=== PATIENT | female | born 1995 | race Caucasian/White ===

== ENCOUNTER 2017-04-27 20:38 | Emergency (ER) | payer BC, OTHER ==
[2017-04-27] MEDS ORDERED: MORPHINE SULFATE 4 MG/ML SYRINGE IVP STA (20:50)
[2017-04-27] MEDS ORDERED: SODIUM CHLORIDE 0.9% 1,000 ML IV ONE (20:50)
[2017-04-27] MEDS ORDERED: DIPH,PERTUS(ACELL)TETVAC-LF 0.5 ML VIAL IM ONE (20:53)
[2017-04-27] MEDS ORDERED: ONDANSETRON 4 MG/2 ML VIAL IVP STA (21:11)
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
[2017-04-27 22:32] VITALS: BP 116/59; PULSE 98; RESP 18; TEMP 99.1
== END 2017-04-27 23:00 | disposition home or self-care (01) ==
LOC: EC 20:38 → SUPCPDRO 20:38 → EC 23:00
DX: S70.01XA Contusion of right hip, initial encounter (principal); S90.31XA Contusion of right foot, initial encounter; Z23 Encounter for immunization; V57.6XXA Passenger in pick-up truck or van injured in collision with fixed or stationary object in traffic accident, initial encounter; Y92.89 Other specified places as the place of occurrence of the external cause
CPT/HCPCS: 71010; 73502; 73630; 90715; 99284; 96374; 96375; 96361; 90471; J2270; J2405

== ENCOUNTER → 2019-09-23 | Outpatient (CLI) | payer BC ==
--- NOTE | 2019-09-23 14:52 | XR ---
EXAMINATION TYPE: XR chest 2V DATE OF EXAM: 09/23/2019 COMPARISON: 04/27/2017 HISTORY: 23-year-old female with cough TECHNIQUE: Frontal and lateral views FINDINGS: The cardiomediastinal silhouette, aorta, and pulmonary vasculature are within normal limits. Lungs an d pleural spaces are clear. IMPRESSION: No acute cardiopulmonary process.
== END | disposition home or self-care (01) ==
LOC: RADXRMAIN 14:18
PROVIDERS: ATTEND Nurse Practitioner Family
DX: R05 Cough (principal); R09.89 Other specified symptoms and signs involving the circulatory and respiratory systems
CPT/HCPCS: 71046

== ENCOUNTER → 2021-07-22 | Outpatient (CLI) | payer MEDICAID ==
[2021-07-22 23:25] LABS: Basophils # (A) 0.04 X 10*3/uL (0.00-0.10); Basophils % (A) 0.4 %; Eosinophils # (A) 0.12 X 10*3/uL (0.04-0.35); Eosinophils % (A) 1.3 %; HCT 38.7 % (37.2-46.3); HGB 12.6 g/dL (12.0-15.0); Lymphocytes # (A) 2.25 X 10*3/uL (0.90-5.00); Lymphocytes % (A) 24.4 %; MCH 30.2 pg (27.0-32.0); MCHC 32.6 g/dL (32.0-37.0); MCV 92.8 fL (80.0-97.0); Mean Platelet Volume 10.6 fL (9.5-12.2); Monocytes # (A) 0.77 X 10*3/uL (0.20-1.00); Monocytes % (A) 8.3 %; Neutrophils # (A) 6.04 X 10*3/uL (1.80-7.70); Neutrophils % (A) 65.4 %; Platelet Count 305 X 10*3/uL (140-440); RBC 4.17 X 10*6/uL (4.10-5.20); RDW 11.9 % (11.5-14.5); WBC 9.24 X 10*3/uL (4.50-10.00)
[2021-07-23 01:04] LABS: African American GFR (CKD) 137.7 (60.0-200.0); Albumin 4.7 g/dL (3.8-4.9); Albumin/Globulin Ratio 2.12 (1.60-3.17); Anion Gap 13.2 mmol/L (4.00-12.00); BUN/Creat Ratio 13.49 Ratio (12.00-20.00); Blood Urea Nitrogen 9.6 mg/dL (9.0-27.0); Calcium 9.2 mg/dL (8.7-10.3); Carbon Dioxide 22.7 mmol/L (21.6-31.8); Globulin 2.2 g/dL (1.6-3.3); Non-African American GFR(CKD) 118.8 (60.0-200.0); Potassium 3.7 mmol/L (3.5-5.5); T4, Free (Free Thyroxine) 0.94 ng/dL (0.800-1.800); Total Bilirubin 0.3 mg/dL (0.30-1.20); Total Protein 6.9 g/dL (6.2-8.2)
== END | disposition home or self-care (01) ==
LOC: LABWHC1 15:17
PROVIDERS: ATTEND Family Medicine
DX: E55.9 Vitamin D deficiency, unspecified (principal); F41.0 Panic disorder [episodic paroxysmal anxiety]; F41.9 Anxiety disorder, unspecified
CPT/HCPCS: 36415; 80053; 82306; 84439; 84443; 85025

== ENCOUNTER → 2021-09-25 | Outpatient (CLI) | payer MEDICAID, OTHER | END | disposition home or self-care (01) | LOC: LABWHC1 06:37 | PROVIDERS: ATTEND Emergency Medicine | DX: Z20.822 Contact with and (suspected) exposure to COVID-19 (principal) | CPT/HCPCS: 87635 ==

== ENCOUNTER → 2021-09-26 | Outpatient (CLI) | payer MEDICAID, OTHER | END | disposition home or self-care (01) | LOC: LABWHC1 06:49 | PROVIDERS: ATTEND Emergency Medicine | DX: Z20.822 Contact with and (suspected) exposure to COVID-19 (principal) | CPT/HCPCS: 87635 ==

== ENCOUNTER → 2021-11-07 | Outpatient (CLI) | payer MEDICAID ==
--- NOTE | 2021-11-07 18:12 | CT ---
EXAMINATION TYPE: CT cervical spine wo con DATE OF EXAM: 11/07/2021 COMPARISON: No previous CT scan is available for comparison. HISTORY: Pain at base of neck following fall. CT DLP: 260.8 mGycm Automated exposure control for dose reduction was used. TECHNIQUE: Multiplanar CT scan of the cervical spine is obtained without contrast, axial images are obtained, sagittal and coronal reformatted images are also reviewed. FINDINGS: Preserved cervical curvature. No significant anterolisthesis or retrolisthesis. No definite vertebral body collapse or acute displaced fracture. Right focal foraminal C3-4 small disc osteophyte complex without significant spinal canal stenosis or neuroforaminal stenosis. No other significant bony degen erative changes of the cervical spine. Unremarkable atlantoaxial and atlantooccipital articulations. No facet dislocation or significant sub luxation. No significant central spinal canal stenosis or neuroforaminal stenosis. Maintained interve rtebral disc spaces. Unremarkable prevertebral soft tissue. Prominent nasopharyngeal, palatine and li ngual tonsils, please correlate clinically. Slightly heterogeneous thyroid gland, please correlate with thyroid function tests. Scattered subcent imeter bilateral cervical lymph nodes, nonspecific. Bilateral apical pulmonary fibrotic changes. Dege nerative/arthritic changes of the mandibular condyles, more than expected for the patient's age, plea se correlate clinically. IMPRESSION: No evidence of traumatic bony injury of the cervical spine. Multiple incidental findings as detailed above.
== END | disposition home or self-care (01) ==
LOC: RADCTMAIN 10:40
PROVIDERS: ATTEND Family Medicine
DX: S19.9XXA Unspecified injury of neck, initial encounter (principal); W19.XXXA Unspecified fall, initial encounter
CPT/HCPCS: 72125

== ENCOUNTER → 2022-08-25 | Outpatient (CLI) | payer MEDICAID ==
[2022-08-25 15:24] LABS: T4, Free (Free Thyroxine) 0.97 ng/dL (0.800-1.800)
== END | disposition home or self-care (01) ==
LOC: LABWHC1 10:33
PROVIDERS: ATTEND Family Medicine
DX: Z00.00 Encounter for general adult medical examination without abnormal findings (principal); E66.3 Overweight; E55.9 Vitamin D deficiency, unspecified; F41.9 Anxiety disorder, unspecified; Z68.26 Body mass index [BMI] 26.0-26.9, adult
CPT/HCPCS: 36415; 82306; 84439; 84443

== ENCOUNTER 2023-03-07 07:46 | Emergency (ER) | payer MEDICAID ==
[2023-03-07 07:52] VITALS: BP 128/80; PULSE 94; RESP 16; TEMP 99
[2023-03-07] MEDS ORDERED: PHENAZOPYRIDINE 100 MG TAB PO STA (07:59)
[2023-03-07] MEDS ORDERED: CEPHALEXIN 500 MG CAP PO STA (07:59)
--- NOTE | 2023-03-07 08:03 | ED ---
General Adult HPI - General Chief complaint: Recheck/Abnormal Lab/Rx Stated complaint: poss UTI Time Seen by Provider: 03/07/23 07:49 Source: patient, RN notes reviewed, old records reviewed Mode of arrival: ambulatory Limitations: no limitations - History of Present Illness Initial comments: Nontoxic-appearing 27-year-old female presents ambulatory with complaints of dysuria that started late last night. Patient states she went to urgent care today thinking she had a urinary tract infection. They did find positive UTI but noted blood in the urine and recommended she come to the emergency room for evaluation. She denies any fevers. No nausea vomiting or diarrhea. No flank pain. She stated states that on Thursday night she did have some right flank pain which resolved and has not had it since. States that she is due to start her menses. No other medical history. -: hour(s) Severity scale (1-10): 0 Quality: burning Consistency: intermittent Worsens with: other (urination) Associated Symptoms: denies other symptoms Treatments Prior to Arrival: other (sent by urgent care) - Related Data Previous Rx's Medication Instructions Recorded HYDROcodone/APAP 5-325MG [[place] 1 tab PO Q6HR PRN #15 tab 04/27/17 5-325] Naproxen [Naprosyn] 500 mg PO Q12HR #30 tab 04/27/17 Cephalexin [Keflex] 500 mg PO Q12HR 5 Days #10 cap 03/07/23 Allergies Allergy/AdvReac Type Severity Reaction Status Date / Time No Known Allergies Allergy Verified 03/07/23 07:48 Review of Systems ROS Statement: Those systems with pertinent positive or pertinent negative responses have been documented in the HPI. ROS Other: All systems not noted in ROS Statement are negative. Past Medical History Past Medical History: No Reported History History of Any Multi-Drug Resistant Organisms: None Reported Past Surgical History: No Surgical Hx Reported Past Psychological History: No Psychological Hx Reported Past Alcohol Use History: Rare Past Drug Use History: None Reported General Exam Limitations: no limitations Course Vital Signs 03/07/23 07:49 Temperature 99 F Pulse Rate 94 Respiratory 16 Rate Blood Pressure 128/80 O2 Sat by Pulse 100 Oximetry Medical Decision Making - Medical Decision Making Was pt. sent in by a medical professional or institution (, PA, ECOLOGICAL RISK ASSESSOR, urgent care, hospital, or [facility]...) When possible be specific @ -[facility] Did you speak to anyone other than the patient for history (EMS, parent, family, police, friend...)? What history was obtained from this source @ -No Did you review nursing and triage notes (agree or disagree)? Why? @ -I reviewed and agree with nursing and triage notes Were old charts reviewed (outside hosp., previous admission, EMS record, old EKG, old radiological studies, urgent care reports/EKG's, [facility] records)? Report findings @ -No old charts were reviewed Differential Diagnosis (chest pain, altered mental status, abdominal pain women, abdominal pain men, vaginal bleeding, weakness, fever, dyspnea, syncope, headache, dizziness, GI bleed, back pain, seizure, CVA, palpatations, mental health, musculoskeletal)? @ -UTI, STI, ectopic , cystitis, pyelonephritis, kidney stone EKG interpreted by me (3pts min.). @ -n/a X-rays interpreted by me (1pt min.). @ -None done CT interpreted by me (1pt min.). @ -None done U/S interpreted by me (1pt. min.). @ -None done What testing was considered but not performed or refused? (CT, X-rays, U/S, labs)? Why? @ -CT or ultrasound of the kidneys considered however patient denies any flank pain at this time. What meds were considered but not given or refused? Why? @ -None Did you discuss the management of the patient with other professionals (professionals i.e. , PA, ECOLOGICAL RISK ASSESSOR, lab, RT, psych nurse, protective services social worker, financial analyst accountant, teacher, railroad police officer, dependency case manager)? Give summary @ -No Was smoking cessation discussed for >3mins.? @ -No Was critical care preformed (if so, how long)? @ -No Were there social determinants of health that impacted care today? How? (Homelessness, low income, unemployed, alcoholism, drug addiction, transportation, low edu. Level, literacy, decrease access to med. care, residential, rehab)? @ -No Was there de-escalation of care discussed even if they declined (Discuss DNR or withdrawal of care, Hospice)? DNR status @ -No What co-morbidities impacted this encounter? (DM, HTN, Smoking, COPD, CAD, Cancer, CVA, ARF, Chemo, Hep., AIDS, mental health diagnosis, sleep apnea, morbid obesity)? @ -None Was patient admitted / discharged? Hospital course, mention meds given and route, prescriptions, significant lab abnormalities, going to OR and other pertinent info. @ -Discharged Nontoxic-appearing 27-year-old female presents ambulatory with complaints of dysuria that started late last night. Patient states she went to urgent care today thinking she had a urinary tract infection. They did find positive UTI but noted blood in the urine and recommended she come to the emergency room for evaluation. She denies any fevers. No nausea vomiting or diarrhea. No flank pain. She stated states that on Thursday night she did have some right flank pain which resolved and has not had it since. Hematuria just started today. States that she is due to start her menses. No vaginal bleeding at this time. No concern for STI, No vaginal discharge. No other medical history. Nonsmoker. Patient states that her father and brother have history of kidney stones however she has never had a kidney stone. [facility] urinalysis results show negative ketones, 3+ blood, positive nitrites and 3+ leukocytes. Negative test. On physical exam patient has no flank pain. Abdomen is soft and nontender. Repeat urinalysis and urine culture was obtained. Repeat UA shows large blood, large leukocyte esterase, 135 white blood cells and rare bacteria. Sent for culture. Patient was given dose of Pyridium for her discomfort and a dose of Keflex in the ER. Prescription for Keflex given. Patient was directed to return to the emergency room with any new or concerning symptoms including flank pain, persistent vomiting or fevers. She is agreeable to this plan of care. Case discussed with Dr. Langston. Undiagnosed new problem with uncertain prognosis? @ -No Drug Therapy requiring intensive monitoring for toxicity (Heparin, Nitro, Insulin, Cardizem)? @ -No Were any procedures done? @ -No Diagnosis/symptom? @ -uti Acute, or Chronic, or Acute on Chronic? @ -Acute Uncomplicated (without systemic symptoms) or Complicated (systemic symptoms)? @ -Uncomplicated Side effects of treatment? @ -No Exacerbation, Progression, or Severe Exacerbation? @ -No Poses a threat to life or bodily function? How? (Chest pain, [place], [place], pneumonia, PE, COPD, DKA, ARF, appy, cholecystitis, CVA, Diverticulitis, Homicidal, Suicidal, threat to staff... and all critical care pts) @ -No - Lab Data Lab Results 03/07/23 Range/Units 08:15 Urine Color Light Red Urine Appearance Turbid H (Clear) Urine pH 8.0 (5.0-8.0) Ur Specific [place] 1.011 (1.001-1.035) Urine Protein 1+ H (Negative) Urine Glucose (UA) Negative (Negative) Urine Ketones Negative (Negative) Urine Blood Large H (Negative) Urine Nitrite Negative (Negative) Urine Bilirubin Negative (Negative) Urine Urobilinogen <2.0 (<2.0) mg/dL Ur Leukocyte Esterase Large H (Negative) Urine RBC >182 H (0-5) /hpf Urine WBC 135 H (0-5) /hpf Urine Bacteria Rare H (None) /hpf Urine Mucus Rare H (None) /hpf Disposition Clinical Impression: UTI (urinary tract infection) Disposition: HOME SELF-CARE Condition: Good Instructions (If sedation given, give patient instructions): Urinary Tract Infection in Women (ED) Additional Instructions: Increase your fluid intake. Take antibiotics as prescribed. Return to the emergency room with any new or concerning symptoms as discussed including fever, back pain or persistent nausea vomiting. Follow-up with primary care doctor next week for reevaluation. Prescriptions: Cephalexin [Keflex] 500 mg PO Q12HR 5 Days #10 cap Is patient prescribed a controlled substance at d/c from ED?: No Referrals: Umberto Epstein Jr, [Primary Care Provider] - 1-2 days Time of Disposition: 08:01
[2023-03-07 08:37] LABS: Appearance,Urine Turbid (Clear); Bacteria,Urine Rare /hpf; Bilirubin,Urine Negative (Negative); Blood,Urine Large (Negative); Color,Urine Light Red; Glucose,Urine (UA) Negative (Negative); Ketones,Urine Negative (Negative); Leukocyte Esterase,Urine Large (Negative); Mucus,Urine Rare /hpf; Nitrite,Urine Negative (Negative); Protein,Urine 1+ (Negative); RBC,Urine >182 /hpf (0-5); Specific Gravity,Urine 1.011 (1.001-1.035); Urobilinogen,Urine <2.0 mg/dL (<2.0); WBC,Urine 135 /hpf (0-5)
== END 2023-03-07 08:46 | disposition home or self-care (01) ==
LOC: EC 07:46
DX: N39.0 Urinary tract infection, site not specified (principal)
CPT/HCPCS: 81001; 87077; 87086; 87186; 99283

== ENCOUNTER → 2023-11-07 | Outpatient (CLI) | payer MEDICAID ==
[2023-11-07 13:38] LABS: Basophils # (A) 0.05 X 10*3/uL (0.00-0.10); Eosinophils # (A) 0.05 X 10*3/uL (0.04-0.35); HCT 38.9 % (37.2-46.3); HGB 12.8 g/dL (12.0-15.0); Immature Grans, Automated 0 %; Lymphocytes # (A) 1.54 X 10*3/uL (0.90-5.00); Lymphocytes % (A) 31.2 %; MCH 30.4 pg (27.0-32.0); MCHC 32.9 g/dL (32.0-37.0); MCV 92.4 FL (80.0-97.0); Mean Platelet Volume 10.3 FL (9.5-12.2); Monocytes # (A) 0.54 X 10*3/uL (0.20-1.00); NRBC Per 100 WBC 0 X 10*3/uL (0.00-0.01); Neutrophils # (A) 2.75 X 10*3/uL (1.80-7.70); Neutrophils % (A) 55.8 %; Platelet Count 286 X 10*3/uL (140-440); RBC 4.21 X 10*6/uL (4.10-5.20); RDW 12.2 % (11.5-14.5); WBC 4.93 X 10*3/uL (4.50-10.00)
[2023-11-07 16:37] LABS: ALT 15 U/L (8-44); AST 15 U/L (13-35); Albumin 4.6 g/dL (3.8-4.9); Albumin/Globulin Ratio 1.84 Ratio (1.60-3.17); Alkaline Phosphatase 48 U/L (41-126); Blood Urea Nitrogen 14.4 mg/dL (9.0-27.0); Calcium 9.4 mg/dL (8.7-10.3); Carbon Dioxide 24.4 mmol/L (21.6-31.8); Chloride 104 mmol/L (96-109); Chol/HDL Ratio 2.31 Ratio; Globulin 2.5 g/dL (1.6-3.3); Glucose 98 mg/dL (70-110); LDL Cholesterol,Calculated 89.8 mg/dL (0.0-131.0); Potassium 4.2 mmol/L (3.5-5.5); Sodium 139 mmol/L (135-145); Total Bilirubin 0.3 mg/dL (0.3-1.2); Total Protein 7.1 g/dL (6.2-8.2); VLDL Calculation 7.32 mg/dL (5.00-40.00)
== END | disposition home or self-care (01) ==
LOC: LABWHC1 08:11
PROVIDERS: ATTEND Family Medicine
DX: Z00.00 Encounter for general adult medical examination without abnormal findings (principal); F41.9 Anxiety disorder, unspecified
CPT/HCPCS: 36415; 80053; 80061; 85025

== ENCOUNTER 2024-09-11 22:42 | Inpatient (IN) | payer MEDICAID ==
--- NOTE | 2024-09-11 23:58 | P.HPOB ---
History of Present Illness H&P Date: 09/11/24 Chief Complaint: 38-6/7 weeks, spontaneous rupture of membranes, early labor The patient is a 28-year-old 1 para 0 admitted at 38-6/7 weeks as established by last menstrual period and confirmed by second trimester ultrasound. She is admitted with documented spontaneous rupture of membranes. She did have a positive urine culture for group B strep early in the and therefore requires antibiotic prophylaxis. Her has otherwise been uncomplicated. On labor delivery, all signs are reassuring with a category 1 heart rate tracing. Obstetrical history: 1 para 0 with current statistics listed in history of present illness. EDC of 09/21/2024 was established by last menstrual period and confirmed by second trimester ultrasound. Laboratory workup demonstrates a blood type of O+ with a negative antibody screen. Rubella status is immune. The remainder of the laboratory workup was within normal limits aside from the positive urine culture for group B strep. 1 hour Glucola was normal. Gynecologic history: Unremarkable with no history of any infections to include STDs. Review of Systems View of systems is confined to history of present illness. Past Medical History Past Medical History: No Reported History History of Any Multi-Drug Resistant Organisms: None Reported Past Surgical History: No Surgical Hx Reported Smoking Status: Never smoker Medications and Allergies Home Medications Medication Instructions Recorded Confirmed Type Aspirin EC [Ecotrin Low Dose] 81 mg PO DAILY 09/11/24 09/11/24 History Cholecalciferol [Vitamin D3 (25 25 mcg PO DAILY 09/11/24 09/11/24 History Mcg = 1000 Iu)] Vit No.179/Iron/Folic 09/11/24 History [ Tablet] RX: Magnesium 09/11/24 History buPROPion [Wellbutrin] 100 mg PO BID 09/11/24 09/11/24 History Allergies Allergy/AdvReac Type Severity Reaction Status Date / Time No Known Allergies Allergy Verified 09/11/24 23:00 Exam Intake and Output 09/11/24 09/11/24 09/12/24 14:59 22:59 06:59 Other: Weight 87.543 kg In general, this is a well-developed, well-nourished white female in no acute distress. Her heart has a regular rhythm and rate without murmur. Her lungs clear to auscultation bilaterally in all tai. Her abdomen is gravid, nondistended, has normal active bowel sounds, soft, nontender, and without any palpable masses aside from uterine fundus. Her extremities are without any cyanosis, clubbing, or significant edema and are nontender to palpation bilaterally. Digital cervical examination performed by the nursing staff d dionisiotrates her cervix to be 2 cm dilated, 80% effaced, with the vertex and presentation at -2 station. Spontaneous rupture of membranes is documented. Assessment and Plan (1) Group B streptococcal infection in Current Visit: Yes Status: Acute Code(s): O98.819 - OTH MATERNAL INFEC/ PARASTC DISEASES COMP PREG, UNSP TRI; B95.1 - STREPTOCOCCUS, GROUP B, CAUSING DISEASES CLASSD [id number] SNOMED Code(s): 555861827 (2) Spontaneous rupture of amniotic membranes Current Visit: Yes Status: Acute Code(s): FOO0495 - SNOMED Code(s): 305685887 (3) Term Current Visit: Yes Status: Acute Code(s): Z34.90 - ENCNTR FOR SUPRVSN OF NORMAL , UNSP, UNSP TRIMESTER SNOMED Code(s): 29121283 Plan: The patient is admitted for active management of labor. Antibiotic prophylaxis will be started. She is a good candidate for either IV or epidural analgesia, whichever she may choose. She will be allowed to labor through the night and, should labor not begin spontaneously, Pitocin augmentation will be started in the morning at approximately 0600. She will continue to have close maternal surveillance and expectant management will be practiced.
[2024-09-12] MEDS ORDERED: LIDOCAINE 0.5% (PF) 5 MG/ML (50 ML SDV) SQ PRN (00:05)
[2024-09-12] MEDS ORDERED: METHYLERGONOVINE 0.2 MG/ML 1 ML AMP IM PRN (00:05)
[2024-09-12] MEDS ORDERED: TRANEXAMIC 1,000 MG/100ML-NACL 1,000 MG in EMPTY BAG 1 BAG IV PRN (00:05)
[2024-09-12] MEDS ORDERED: TERBUTALINE 1 MG/ML VIAL SQ PRN (00:05)
[2024-09-12] MEDS ORDERED: CARBOPROST TROMETHAMINE 250 MCG/ML 1 ML AMP IM PRN (00:05)
[2024-09-12] MEDS ORDERED: miSOPROStoL 200 MCG TAB PO PRN (00:05)
[2024-09-12] MEDS ORDERED: OXYTOCIN 10 UNIT/ML 1 ML VIAL IM PRN (00:05)
[2024-09-12] MEDS ORDERED: miSOPROStoL 200 MCG TAB RECTAL PRN (00:05)
[2024-09-12] MEDS: PENICILLIN G POTASSIUM 5,000,000 UNIT in DEXTROSE 5% IN WATER 100 ML IVPB ONE (00:33)
[2024-09-12] MEDS: LACTATED RINGERS 1,000 ML IV SCH (00:34)
[2024-09-12 00:43] LABS: Basophils % (A) 0 %; Eosinophils # (A) 0.1 k/uL (0-0.7); Eosinophils % (A) 1 %; HCT 34.3 % (34.0-46.0); HGB 11.7 gm/dL (11.4-16.0); Lymphocytes # (A) 1.8 k/uL (1.0-4.8); Lymphocytes % (A) 12 %; MCH 30.2 pg (25.0-35.0); MCHC 34.2 g/dL (31.0-37.0); MCV 88.2 fL (80.0-100.0); Mean Platelet Volume 7.6; Monocytes # (A) 1.3 k/uL (0-1.0); Monocytes % (A) 9 %; Neutrophils # (A) 11.2 k/uL (1.3-7.7); Neutrophils % (A) 76 %; Platelet Count 330 k/uL (150-450); RBC 3.89 m/uL (3.80-5.40); RDW 12.7 % (11.5-15.5); WBC 14.8 k/uL (3.8-10.6)
[2024-09-12] MEDS: BUTORPHANOL 1 MG/ML 1 ML VIAL IV PRN (02:42)
[2024-09-12] MEDS: PENICILLIN G POTASSIUM 2,500,000 UNIT in DEXTROSE 5% IN WATER 100 ML IVPB SCH (04:34)
[2024-09-12] MEDS: OXYTOCIN 30 UNITS/500 ML NS 30 UNIT in SALINE 1 500ML.BAG IV SCH (07:23)
[2024-09-12] MEDS ORDERED: diphenhydrAMINE 25 MG CAP PO PRN (15:34)
[2024-09-12] MEDS ORDERED: diphenhydrAMINE 50 MG CAP PO PRN (15:34)
[2024-09-12] MEDS ORDERED: LANOLIN CREAM 1 GM TUBE TOPICAL PRN (15:34)
[2024-09-12] MEDS ORDERED: ZOLPIDEM 5 MG TAB PO PRN (15:34)
[2024-09-12] MEDS ORDERED: HYDROCORTISONE 2.5% RECTAL CREAM 30 GM TUBE RECTAL PRN (15:34)
[2024-09-12] MEDS ORDERED: BENZOCAINE/MENTHOL SPRAY 1 GM/SPRAY AEROSOL TOPICAL PRN (15:34)
[2024-09-12] MEDS ORDERED: ACETAMINOPHEN TAB 500 MG TAB PO PRN (15:34)
[2024-09-12] MEDS ORDERED: SIMETHICONE 80 MG CHEWABLE PO PRN (15:34)
[2024-09-12] MEDS ORDERED: diphenhydrAMINE 50 MG/ML 1 ML VIAL IVP PRN ×2 (15:34)
--- NOTE | 2024-09-12 15:37 | P.PROBDLV ---
Vaginal Delivery Note - . Vaginal Delivery Note: 28-year-old presents at 38 weeks and 5 days with spontaneous rupture membranes at 2115 on 09/11/2024. When she came into the hospital her cervix was 2 centers dilated, 80% effaced, and -2 station. She is natalie irregularly and heart tones category 1. She had Pitocin augmentation and an epidural. Her cervix was completely dilated at 1345. She pushed, delivered a viable female infant over intact perineum under epidural anesthesia at 1515. Head d elivered OA, nuchal cord 1 easily reduced, anterior shoulder delivered gentle downward guidance followed by posterior shoulder and rest of body. Nose and mouth bulb suctioned, cord clamped and cut, infant placed mother's abdomen. Apgars 9, 9, weight 8 lbs. 5 oz. Placenta delivered spontaneously, intact with three-vessel cord at 1518. Vagina, cervix, and perineum were inspected. Second-degree midline laceration was repaired with 3-0 Vicryl. Estimated blood loss 150 mL. Mother and baby in stable condition.
[2024-09-12] MEDS: IBUPROFEN 800 MG TAB PO PRN (16:24)
[2024-09-12 20:14] VITALS: RESP 16
[2024-09-13] MEDS: SENNOSIDES-DOCUSATE SODIUM 1 EACH TAB PO SCH (00:41)
[2024-09-13 05:37] LABS: Basophils % (A) 0 %; Eosinophils # (A) 0.1 k/uL (0-0.7); Eosinophils % (A) 1 %; HCT 33.6 % (34.0-46.0); HGB 10.9 gm/dL (11.4-16.0); Lymphocytes # (A) 2.2 k/uL (1.0-4.8); Lymphocytes % (A) 13 %; MCH 29.6 pg (25.0-35.0); MCHC 32.5 g/dL (31.0-37.0); MCV 91.1 fL (80.0-100.0); Mean Platelet Volume 7.3; Monocytes # (A) 1.4 k/uL (0-1.0); Monocytes % (A) 8 %; Neutrophils % (A) 76 %; Platelet Count 303 k/uL (150-450); RBC 3.68 m/uL (3.80-5.40); RDW 12.5 % (11.5-15.5)
--- NOTE | 2024-09-13 07:54 | P.DS ---
Providers Date of admission: 09/11/24 23:29 Expected date of discharge: 09/13/24 Attending physician: May Escalante Primary care physician: Stated None - Discharge Diagnosis(es) (1) Status post normal vaginal delivery Current Visit: Yes Status: Acute Hospital Course: Sounded with spontaneous rupture membranes. She underwent a normal vaginal delivery with Pitocin augmentation. course was uneventful. She denies nausea, vomiting, chest pain, shortness of breath or calf pain. Patient will be discharged home day #1 in stable condition to follow-up with Dr. Escalante in 6 weeks. Plan - Discharge Summary New Discharge Prescriptions: No Action Cholecalciferol [Vitamin D3 (25 Mcg = 1000 Iu)] 25 mcg PO DAILY Aspirin EC [Ecotrin Low Dose] 81 mg PO DAILY buPROPion [Wellbutrin] 100 mg PO BID Vit No.179/Iron/Folic [ Tablet] Magnesium Discharge Medication List Aspirin EC [Ecotrin Low Dose] 81 mg PO DAILY 09/11/24 [History] Cholecalciferol [Vitamin D3 (25 Mcg = 1000 Iu)] 25 mcg PO DAILY 09/11/24 [History] Magnesium 09/11/24 [History] Vit No.179/Iron/Folic [ Tablet] 09/11/24 [History] buPROPion [Wellbutrin] 100 mg PO BID 09/11/24 [History] Follow up Appointment(s)/Referral(s): May Escalante DO [Doctor of Osteopathic Medicine] - 10/24/24 11:00 am Discharge Disposition: HOME SELF-CARE
[2024-09-13 10:30] VITALS: PULSE 82
[2024-09-13 15:24] VITALS: BP 131/78; TEMP 98.1
== END 2024-09-13 16:50 | disposition home or self-care (01) | DRG 807 ==
LOC: FBPOP 22:42 → 4FBP 23:29
PROVIDERS: ADMIT Obstetrics & Gynecology; ATTEND Obstetrics & Gynecology Obstetrics
PROC: 10E0XZZ Delivery of Products of Conception, External Approach (ICD-10-PCS; principal; 2024-09-11)
PROC: 0KQM0ZZ Repair Perineum Muscle, Open Approach (ICD-10-PCS; 2024-09-11)
DX: O69.81X0 Labor and delivery complicated by cord around neck, without compression, not applicable or unspecified (principal); Z37.0 Single live birth; O70.1 Second degree perineal laceration during delivery; Z3A.38 38 weeks gestation of pregnancy; O99.824 Streptococcus B carrier state complicating childbirth; Z79.82 Long term (current) use of aspirin; Z79.899 Other long term (current) drug therapy
CPT/HCPCS: 59025; 84112; 85025; 86850; 86900; 86901; 99213